=== PATIENT | male | born 1980 | race American Indian/Alaskan Native ===

== ENCOUNTER 2016-12-15 02:15 | Emergency (ER) | payer OTHER ==
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
[2016-12-15] MEDS ORDERED: TYLENOL ONE (05:26)
[2016-12-15] MEDS ORDERED: TYLENOL PO ONE (05:29)
[2016-12-15] MEDS ORDERED: BOOSTRIX IM ONE (06:45)
[2016-12-15] MEDS ORDERED: TORADOL IV ONE (06:45)
[2016-12-15] MEDS ORDERED: TRIPLE ANTIBIOTIC TP ONE ×2 (06:53→07:05)
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
--- NOTE | 2016-12-15 07:22 | XRay Report ---
RIGHT KNEE, 3 views: History: Right knee pain. The bony architecture is intact without evidence of fracture or dislocation. No significant soft tissue abnormality is seen. IMPRESSION: Normal right knee.
[2016-12-15 07:35] VITALS: BP 120/74
== END 2016-12-15 07:37 | disposition home or self-care (01) ==
LOC: ED 02:15
DX: S06.0X1A Concussion with loss of consciousness of 30 minutes or less, initial encounter (principal); S89.91XA Unspecified injury of right lower leg, initial encounter; F17.200 Nicotine dependence, unspecified, uncomplicated; V09.9XXA Pedestrian injured in unspecified transport accident, initial encounter; Y93.89 Activity, other specified; Y99.8 Other external cause status; Y92.89 Other specified places as the place of occurrence of the external cause
CPT/HCPCS: 70450; 72125; 73562; 90471; 90715; 96374; 99284; J1885; A6250

== ENCOUNTER 2019-09-08 02:33 | Emergency (ER) | payer SELFPAY ==
[2019-09-08 02:39] VITALS: BP 140/58
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
--- NOTE | 2019-09-08 04:23 | XRay Report ---
XR RIGHT FOOT 3 VIEWS INDICATION / CLINICAL INFORMATION: pain, injury COMPARISON: None available. FINDINGS: BONES / JOINT(S): No acute displaced fracture or subluxation. No significant arthritis. SOFT TISSUES: No significant abnormality. ADDITIONAL FINDINGS: None. Signer Name: Cony Malave MD Signed: 09/08/2019 4:18 AM Workstation Name: [id number]
--- NOTE | 2019-09-08 04:24 | XRay Report ---
XR RIGHT ANKLE 3 VIEWS INDICATION / CLINICAL INFORMATION: pain, injury COMPARISON: None available. FINDINGS: BONES / JOINT(S): No acute displaced fracture or subluxation. No significant arthritis. SOFT TISSUES: Mild soft tissue swelling of the lateral ankle. ADDITIONAL FINDINGS: None. Signer Name: Cony Malave MD Signed: 09/08/2019 4:20 AM Workstation Name: [id number]
== END 2019-09-08 05:25 | disposition home or self-care (01) ==
LOC: ED 02:33
DX: S93.401A Sprain of unspecified ligament of right ankle, initial encounter (principal); S93.601A Unspecified sprain of right foot, initial encounter; F17.200 Nicotine dependence, unspecified, uncomplicated; Z79.899 Other long term (current) drug therapy; V02.10XA Pedestrian on foot injured in collision with two- or three-wheeled motor vehicle in traffic accident, initial encounter; Y93.89 Activity, other specified; Y92.410 Unspecified street and highway as the place of occurrence of the external cause; Y99.8 Other external cause status